=== PATIENT | female | born 1990 | race Caucasian/White ===

== ENCOUNTER 2016-09-27 14:30 | Inpatient (IN) | payer BC ==
[~2016-09-27] VITALS: Ht 154.9 cm; Wt 69.4 kg
[2016-09-27 14:33] VITALS: BP_SYST 109
[2016-09-27] MEDS ORDERED: ACETAMINOPHEN 325 MG TABLET PO ONE ×2 (14:45→19:00)
[2016-09-27] MEDS ORDERED: NS 1000 ML BAG IV ONE (14:45)
[2016-09-27] MEDS ORDERED: cefTRIAXone 1 GM IVPB PREMIX 50 ML IV ONE (15:00)
[2016-09-27 15:29] LABS: HEMATOCRIT 33.8 % (36-48); HEMOGLOBIN 11.8 g/dL (12.0-16.0); MEAN CORPUSCULAR HEMOGLOBIN 31 pg (27-31); MEAN CORPUSCULAR HGB CONC 35 % (32-36); MEAN CORPUSCULAR VOLUME 88 fL (79.0-98.0); PLATELET COUNT (AUTO) 248 K/uL (130-430); RED BLOOD CELL COUNT(AUTO) 3.85 MIL/uL (4.2-6.2); RED CELL DISTRIBUTION WIDTH 12.1 % (9.0-15.0); WHITE BLOOD COUNT (AUTO) 22.1 K/uL (4.8-10.8)
[2016-09-27 15:36] LABS: CALCIUM 8.9 mg/dL (8.4-11.0); CREATININE 0.58 mg/dL (0.55-1.30); POTASSIUM 3.4 mmol/L (3.5-5.1)
[2016-09-27 15:37] LABS: BILIRUBIN,URINE NEGATIVE (NEGATIVE); BLOOD, URINE 1+ (NEGATIVE); CLARITY/URINE HAZY (CLEAR); COLOR,URINE YELLOW (YELLOW); GLUCOSE,URINE NEGATIVE (NEGATIVE); KETONES,URINE 1+ (NEGATIVE); LEUKOCYTE ESTERASE ,URINE 1+ (NEGATIVE); NITRITE, URINE NEGATIVE (NEGATIVE); PROTEIN URINE NEGATIVE (NEGATIVE); UROBILINOGEN,URINE 0.2 (0.2-1.0)
[2016-09-27 15:41] LABS: TOTAL BILIRUBIN 0.7 mg/dL (0.0-1.0); TOTAL PROTEIN, SERUM 7.7 g/dL (6.4-8.3)
[2016-09-27 15:56] LABS: BACTERIA,URINE FEW /HPF (None Seen); MUCUS,URINE None Seen /LPF (None Seen); RBC,URINE 0-3 /HPF (0-3); URINE AMORPHOUS URATE 2+ /HPF (None Seen)
[2016-09-27 16:11] LABS: ATYPICAL LYMPHOCYTES % 0 % (0-0); BAND % (MANUAL) 2 % (0-6); BASOPHILS % (MANUAL) 0 % (0-2); EOSINOPHILS % (MANUAL) 0 % (0-7); LYMPHOCYTES % (MANUAL) 14 % (20-46); MONOCYTES % (MANUAL) 7 % (0-11)
[2016-09-27] MEDS ORDERED: PIPERACILLIN/TAZO 4.5 GM in NS 100 ML IV ONE (16:45)
[2016-09-27] MEDS: D5LR 1,000 ML IV SCH (21:00)
[2016-09-28 00:26] VITALS: BP_SYST 118
[2016-09-28] MEDS: ACETAMINOPHEN 325 MG TABLET PO PRN ×3 (01:07→13:49)
[2016-09-28] MEDS: D5LR 1,000 ML IV SCH (03:40)
[2016-09-28] MEDS ORDERED: cefTRIAXone 1 GM IVPB PREMIX 50 ML IV ONE ×2 (06:00→06:21)
[2016-09-28 07:24] LABS: HEMOGLOBIN 10.4 g/dL (12.0-16.0); MEAN CORPUSCULAR HEMOGLOBIN 31 pg (27-31); MEAN CORPUSCULAR HGB CONC 35 % (32-36); MEAN CORPUSCULAR VOLUME 89 fL (79.0-98.0); PLATELET COUNT (AUTO) 220 K/uL (130-430); RED BLOOD CELL COUNT(AUTO) 3.37 MIL/uL (4.2-6.2); RED CELL DISTRIBUTION WIDTH 12.3 % (9.0-15.0); WHITE BLOOD COUNT (AUTO) 21.8 K/uL (4.8-10.8)
[2016-09-28 09:53] LABS: ATYPICAL LYMPHOCYTES % 0 % (0-0); BAND % (MANUAL) 4 % (0-6); BASOPHILS % (MANUAL) 0 % (0-2); EOSINOPHILS % (MANUAL) 0 % (0-7); LYMPHOCYTES % (MANUAL) 6 % (20-46); MONOCYTES % (MANUAL) 6 % (0-11)
[2016-09-28] MEDS ORDERED: CITRIC ACID/SODIUM CITRATE 30 ML UDC PO ONE (20:30)
[2016-09-29] MEDS ORDERED: cefTRIAXone 1 GM IVPB PREMIX 50 ML IV SCH (06:00)
== END 2016-09-29 14:00 | disposition left against medical advice (07) | DRG 781 ==
LOC: SED 14:30 → SPU 18:35
PROVIDERS: ADMIT Specialist; ATTEND Specialist
DX: O23.43 Unspecified infection of urinary tract in pregnancy, third trimester (principal); Z53.21 Procedure and treatment not carried out due to patient leaving prior to being seen by health care provider; Z3A.35 35 weeks gestation of pregnancy
CPT/HCPCS: 36415; 76700-TC; 80053; 81000-TC; 83605; 85007; 85027; 87040-TC; 87086; 96365; 96367; 99285; J0696; J2543; J7030; J7120

== ENCOUNTER 2016-10-30 01:35 | Inpatient (IN) | payer BC ==
[~2016-10-30] VITALS: Ht 154.9 cm; Wt 69.4 kg
[2016-10-30] MEDS ORDERED: LR 1,000 ML IV ONE (01:56)
[2016-10-30] MEDS ORDERED: LR 1,000 ML IV SCH (01:56)
[2016-10-30] MEDS: NALBUPHINE HCL 10 MG/ML AMP IVP PRN ×3 (01:58→13:58)
[2016-10-30] MEDS ORDERED: TERBUTALINE SULFATE 1 MG/ML VIAL SUBCUT ONE (02:00)
[2016-10-30] MEDS ORDERED: NALBUPHINE HCL 10 MG/ML AMP ONE (02:08)
[2016-10-30] MEDS ORDERED: FENT2mCg/mL-ROPIVA0.2%/NS EPID 150 ML EP ONE (02:17)
[2016-10-30 02:22] LABS: HEMATOCRIT 38.5 % (36-48); HEMOGLOBIN 12.8 g/dL (12.0-16.0); MEAN CORPUSCULAR HEMOGLOBIN 30 pg (27-31); MEAN CORPUSCULAR HGB CONC 33 % (32-36); MEAN CORPUSCULAR VOLUME 90 fL (79.0-98.0); PLATELET COUNT (AUTO) 296 K/uL (130-430); RED BLOOD CELL COUNT(AUTO) 4.29 MIL/uL (4.2-6.2); RED CELL DISTRIBUTION WIDTH 12.7 % (9.0-15.0); WHITE BLOOD COUNT (AUTO) 30.7 K/uL (4.8-10.8)
[2016-10-30 02:53] LABS: BAND % (MANUAL) 3 % (0-6)
[2016-10-30 02:54] LABS: ATYPICAL LYMPHOCYTES % 0 % (0-0); BASOPHILS % (MANUAL) 0 % (0-2); EOSINOPHILS % (MANUAL) 0 % (0-7); LYMPHOCYTES % (MANUAL) 10 % (20-46); MONOCYTES % (MANUAL) 3 % (0-11)
[2016-10-30 03:44] VITALS: BP_SYST 124
[2016-10-30] MEDS ORDERED: cefTRIAXone 1 GM IVPB PREMIX 100 ML IV ONE (06:35)
[2016-10-30] MEDS ORDERED: OXYTOCIN/NORMAL SALINE 1,000 ML IV SCH ×2 (06:45→15:51)
[2016-10-30] MEDS ORDERED: ACETAMINOPHEN 500 MG TABLET PO PRN (06:45)
[2016-10-30] MEDS ORDERED: ACETAMINOPHEN 500 MG TABLET ONE (06:53)
[2016-10-30] MEDS ORDERED: OXYTOCIN/NORMAL SALINE 1,000 ML IV ONE ×2 (07:12→15:51)
[2016-10-30] MEDS ORDERED: LIDOCAINE MPF 2% 5mL VIAL INJ ONE (15:00)
[2016-10-30] MEDS ORDERED: OXYCODONE/ACETAMINOPHEN 5-325 TABLET PO PRN ×2 (16:00)
[2016-10-30] MEDS ORDERED: HYDROCORTISONE 0.5%, 28.35 GM TOPICAL CREAM TP PRN (16:00)
[2016-10-30] MEDS ORDERED: ANUSOL 1 EA SUPP.RECT (PREPARATION H) RC PRN (16:00)
[2016-10-30] MEDS ORDERED: LANOLIN 7 GM OINT. TP PRN (16:00)
[2016-10-30] MEDS ORDERED: METHYLERGONOVINE MALEATE 0.2 MG TABLET PO PRN (16:00)
[2016-10-30] MEDS ORDERED: GLYCERIN/WITCH HAZEL (TUCKS PADS) TP PRN (16:00)
[2016-10-30] MEDS ORDERED: RHO(D) IMMUNE GLOBULIN/MALTOSE 1500 UNITS/1.3 ML (WINHRO) IM PRN (16:00)
[2016-10-30] MEDS ORDERED: DERMOPLAST SPRAY TP PRN (16:00)
[2016-10-30] MEDS ORDERED: MEASLES,MUMPS&RUBELLA VACC/PF 12500 UNIT/0.5 ML VIAL SUBQ PRN (16:00)
[2016-10-30] MEDS: IBUPROFEN 600 MG TABLET PO SCH (18:19)
[2016-10-30] MEDS ORDERED: TEMAZEPAM 15 MG CAPSULE PO PRN (21:00)
[2016-10-31] MEDS: IBUPROFEN 600 MG TABLET PO SCH ×4 (00:33→18:04)
[2016-10-31] MEDS ORDERED: NACL 0.9% 1,000 ML IV SCH (05:45)
[2016-10-31 06:18] LABS: HEMATOCRIT 26.3 % (36-48); HEMOGLOBIN 8.9 g/dL (12.0-16.0)
[2016-10-31] MEDS: DOCUSATE SODIUM 100 MG CAPSULE PO PRN (12:04)
[2016-10-31] MEDS: SENNOSIDES/DOCUSATE SODIUM 1 TAB TABLET(SENOKOT-S) PO PRN (12:04)
[2016-10-31] MEDS ORDERED: ACETAMINOPHEN 325 MG TABLET PO PRN (13:30)
[2016-10-31] MEDS ORDERED: ACETAMINOPHEN 325 MG TABLET ONE (13:49)
[2016-11-01] MEDS: IBUPROFEN 600 MG TABLET PO SCH ×5 (00:07→23:34)
[2016-11-01 07:49] LABS: BASOPHILS % (AUTO) 0.2 % (0.0-2.0); EOSINOPHILS % (AUTO) 0.4 % (0.0-4.0); HEMATOCRIT 27.7 % (36-48); HEMOGLOBIN 9.4 g/dL (12.0-16.0); LYMPHOCYTES # (AUTO) 1.5 K/uL (1.0-5.5); LYMPHOCYTES % (AUTO) 12.7 % (20.5-51.5); MEAN CORPUSCULAR HEMOGLOBIN 30 pg (27-31); MEAN CORPUSCULAR HGB CONC 34 % (32-36); MEAN CORPUSCULAR VOLUME 89 fL (79.0-98.0); MONOCYTES # (AUTO) 0.5 K/uL (0.0-1.0); MONOCYTES % (AUTO) 4.6 % (1.7-9.3); NEUTROPHILS # (AUTO) 9.9 K/uL (1.8-7.7); NEUTROPHILS % (AUTO) 82.1 % (40.0-70.0); PLATELET COUNT (AUTO) 211 K/uL (130-430); RED BLOOD CELL COUNT(AUTO) 3.13 MIL/uL (4.2-6.2); WHITE BLOOD COUNT (AUTO) 11.9 K/uL (4.8-10.8)
[2016-11-01] MEDS ORDERED: MINERAL OIL 30 ML UDC PO ONE (09:00)
[2016-11-01] MEDS: SENNOSIDES/DOCUSATE SODIUM 1 TAB TABLET(SENOKOT-S) PO PRN (09:28)
[2016-11-01] MEDS: DOCUSATE SODIUM 100 MG CAPSULE PO PRN (09:28)
[2016-11-02] MEDS: IBUPROFEN 600 MG TABLET PO SCH ×2 (05:40→12:13)
[2016-11-02] MEDS: DOCUSATE SODIUM 100 MG CAPSULE PO PRN (09:25)
[2016-11-02] MEDS ORDERED: CEPH-568 PO (10:28)
[2016-11-02] MEDS ORDERED: IBUP-1480 PO (10:28)
[2016-11-02] MEDS ORDERED: MEASLES,MUMPS&RUBELLA VACC/PF 12500 UNIT/0.5 ML VIAL SUBQ ONE (12:00)
[2016-11-02] MEDS ORDERED: DIPH-TET-PERTUS Vaccine 0.5 ML VIAL (ADACEL) I.M. ONE (12:15)
== END 2016-11-02 12:25 | disposition home or self-care (01) | DRG 775 ==
LOC: SPU 01:35
PROC: 0W8NXZZ Division of Female Perineum, External Approach (ICD-10-PCS; principal; 2016-10-29)
PROC: 10D07Z3 Extraction of Products of Conception, Low Forceps, Via Natural or Artificial Opening (ICD-10-PCS; 2016-10-29)
PROC: 3E0S3CZ (ICD-10-PCS; 2016-10-29)
PROC: 00HU33Z Insertion of Infusion Device into Spinal Canal, Percutaneous Approach (ICD-10-PCS; 2016-10-29)
DX: O69.81X0 Labor and delivery complicated by cord around neck, without compression, not applicable or unspecified (principal); O41.1030 Infection of amniotic sac and membranes, unspecified, third trimester, not applicable or unspecified; B96.20 Unspecified Escherichia coli [E. coli] as the cause of diseases classified elsewhere; Z37.0 Single live birth; Z3A.40 40 weeks gestation of pregnancy
CPT/HCPCS: 36415; 81002-TC; 85007; 85018-TC; 85025; 85027; 86592; 86886; 86900; 86901; 87040-TC; 87070-TC; 87075-TC; 87186-TC; 90715; J0696; J2001; J2300; J2590; J3010; J7060